=== PATIENT | female | born 1990 | race Hispanic/Latino ===

== ENCOUNTER 2018-08-28 16:40 | Emergency (ER) | payer BC ==
[2018-08-28] MEDS ORDERED: Morphine 4 MG/ML VIAL IVP STA (17:04)
[2018-08-28] MEDS ORDERED: Morphine 4 MG/ML VIAL ONE (17:17)
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
--- NOTE | 2018-08-28 18:13 | RAD ---
Date of service: 08/28/2018 PROCEDURE: Left Knee Radiographs. HISTORY: Pain. COMPARISON: None. FINDINGS: BONES: No acute fracture. JOINTS: Unremarkable. JOINT EFFUSION: None. OTHER FINDINGS: None. IMPRESSION: No demonstrated fracture or dislocation.
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
[2018-08-28 19:40] VITALS: BP 119/78; PULSE 71; RESP 16; TEMP 98.2
[2018-08-28 19:41] VITALS: O2SAT 99
== END 2018-08-28 19:44 | disposition home or self-care (01) ==
LOC: H.ER 16:40
DX: S09.90XA Unspecified injury of head, initial encounter (principal); S13.9XXA Sprain of joints and ligaments of unspecified parts of neck, initial encounter; S89.92XA Unspecified injury of left lower leg, initial encounter; V43.52XA Car driver injured in collision with other type car in traffic accident, initial encounter; Y92.410 Unspecified street and highway as the place of occurrence of the external cause; Y99.0 Civilian activity done for income or pay; F41.9 Anxiety disorder, unspecified
CPT/HCPCS: 29530; 70450; 71045; 72125; 73502; 73552; 73562; 81025; 96374; 96375; 99285; J1885; J2270